=== PATIENT | male | born 1990 | race Caucasian/White ===

== ENCOUNTER 2024-07-27 00:32 | Emergency (ER) | payer OTHER ==
[~2024-07-27] VITALS: Ht 175.3 cm; Wt 70.0 kg
[2024-07-27 01:11] VITALS: O2SAT 99
[2024-07-27] MEDS ORDERED: DOXYCYCLINE HYCLATE 100MG CAPSULE PO ONE (01:30)
[2024-07-27] MEDS ORDERED: CEFTRIAXONE SODIUM 500MG VIAL IM ONE (01:30)
[2024-07-27] MEDS ORDERED: NAPR-1176 MT (02:46)
[2024-07-27] MEDS ORDERED: CYCL10TA21 MT (02:46)
[2024-07-27] MEDS: HYDROCODONE/ACETAMINOPHEN 5/325MG TABLET PO ONE (02:51)
[2024-07-27] MEDS: KETOROLAC 30MG/ML VIAL IM ONE (02:51)
[2024-07-27 02:54] VITALS: BP 119/64; PULSE 70; RESP 18; TEMP 36.7; O2SAT 99
== END 2024-07-27 03:00 | disposition home or self-care (01) ==
LOC: ER 00:32
DX: M54.50 Low back pain, unspecified (principal); Z88.0 Allergy status to penicillin; Z98.890 Other specified postprocedural states
CPT/HCPCS: 99285; 72131; 96372; J1885